=== PATIENT | male | born 1945 | race Caucasian/White ===

== ENCOUNTER 2018-10-14 14:09 | Emergency (ER) | payer MEDICARE, BC ==
[~2018-10-14] VITALS: Ht 182.9 cm; Wt 157.0 kg
[2018-10-14 14:54] LABS: BASOPHILS % (AUTO) 0.3 % (0-1); EOSINOPHILS # (AUTO) 0.5 X10'3 (0-0.9); EOSINOPHILS % (AUTO) 5.3 % (0-6); HEMATOCRIT 46.8 % (42.0-52.0); HEMOGLOBIN 14.5 g/dl (14.0-17.9); LYMPHOCYTES # (AUTO) 0.6 X10'3 (1.1-4.8); LYMPHOCYTES % (AUTO) 6.9 % (21-51); MEAN CORPUSCULAR HEMOGLOBIN 25.2 PG (27.0-31.0); MEAN CORPUSCULAR HGB CONC 30.9 % (33.0-36.5); MEAN CORPUSCULAR VOLUME 81.7 FL (78-98); MEAN PLATELET VOLUME 8.4 FL (7.4-10.4); MONOCYTES # (AUTO) 0.8 X10'3 (0-0.9); MONOCYTES % (AUTO) 8.9 % (2-12); NEUTROPHILS # (AUTO) 6.9 X10'3 (1.8-7.7); NEUTROPHILS % (AUTO) 78.6 % (42-75); PLATELET COUNT 200 X10'3 (140-440); RED BLOOD COUNT 5.74 X10'6 (4.70-6.10); RED CELL DISTRIBUTION WIDTH 17.6 % (11.5-14.5); WHITE BLOOD COUNT 8.7 X10'3 (4.5-11.0)
[2018-10-14 15:10] LABS: ALANINE AMINOTRANSFERASE 27 U/L (12-78); ALBUMIN 3.5 G/DL (3.4-5.0); ALKALINE PHOSPHATASE 60 IU/L (46-116); ANION GAP 4 (8-16); ASPARTATE AMINO TRANSFERASE 16 U/L (10-37); BILIRUBIN,TOTAL 0.4 MG/DL (0.1-1.0); BLOOD UREA NITROGEN 31 MG/DL (7-18); BUN/CREATININE RATIO 17.1 (5.4-32.0); CALCIUM 9.2 MG/DL (8.5-10.1); CHLORIDE 101 MMOL/L (99-107); CREATININE 1.81 MG/DL (0.60-1.10); GLUCOSE 123 MG/DL (70-104); LIPASE 185 U/L (73-393); POTASSIUM 4.1 MMOL/L (3.5-5.1); SODIUM 139 MMOL/L (135-145); TOTAL CARBON DIOXIDE 33.9 MMOL/L (24-32); TOTAL PROTEIN 7.1 G/DL (6.4-8.2); eGFR 37 ML/MIN
[2018-10-14 15:48] LABS: CLARITY,URINE SLIGHTLY CLOUDY (Clear); COLOR,URINE STRAW (Yellow); GLUCOSE, URINE NEGATIVE (Neg); KETONES,URINE NEGATIVE (Neg); LEUKOCYTE ESTERASE ,URINE SMALL (Neg); NITRITES, URINE NEGATIVE (Neg); OCCULT BLOOD,URINE TRACE-INTACT (Neg); PH,URINE 6.5 (4.8-8.0); PROTEIN,URINE NEGATIVE (Neg); UA COLLECTION TYPE CLN CATCH MIDSTREAM; UROBILINOGEN,URINE 0.2 E.U/dL (0.2-1.0)
[2018-10-14 15:55] LABS: BACTERIA,URINE 1+ /HPF (Neg); RBC,URINE 0-2 /HPF (0-2); SQUAMOUS EPITHELIAL CELL,UR FEW /LPF (FEW); WBC CLUMPS,URINE FEW /HPF (NEGATIVE)
[2018-10-14] MEDS ORDERED: LEVO500T2 PO (16:29)
[2018-10-14 16:45] VITALS: BP 154/108
== END 2018-10-14 16:46 | disposition home or self-care (01) ==
LOC: ER 14:11
DX: N39.0 Urinary tract infection, site not specified (principal); N28.9 Disorder of kidney and ureter, unspecified; R60.0 Localized edema; I48.91 Unspecified atrial fibrillation; I11.0 Hypertensive heart disease with heart failure; I50.9 Heart failure, unspecified; E78.00 Pure hypercholesterolemia, unspecified; J44.9 Chronic obstructive pulmonary disease, unspecified; Z87.891 Personal history of nicotine dependence; Z56.0 Unemployment, unspecified; Z88.8 Allergy status to other drugs, medicaments and biological substances; Z79.899 Other long term (current) drug therapy
CPT/HCPCS: 36415; 71045; 80053; 81001; 83690; 84484; 85025; 87077; 87088; 87186; 93005; 99284

== ENCOUNTER 2018-10-31 14:21 | Emergency (ER) | payer MEDICARE, BC ==
[~2018-10-31] VITALS: Ht 182.9 cm; Wt 150.0 kg
[2018-10-31 14:40] VITALS: BP 143/91
[2018-10-31 15:23] LABS: BASOPHILS # (AUTO) 0.1 X10'3 (0-0.2); BASOPHILS % (AUTO) 0.6 % (0-1); EOSINOPHILS # (AUTO) 0.4 X10'3 (0-0.9); EOSINOPHILS % (AUTO) 4.6 % (0-6); HEMATOCRIT 48.8 % (42.0-52.0); HEMOGLOBIN 15.2 g/dl (14.0-17.9); LYMPHOCYTES # (AUTO) 0.7 X10'3 (1.1-4.8); LYMPHOCYTES % (AUTO) 7.9 % (21-51); MEAN CORPUSCULAR HEMOGLOBIN 25.4 PG (27.0-31.0); MEAN CORPUSCULAR HGB CONC 31.2 % (33.0-36.5); MEAN CORPUSCULAR VOLUME 81.3 FL (78-98); MEAN PLATELET VOLUME 8.6 FL (7.4-10.4); MONOCYTES % (AUTO) 10.2 % (2-12); NEUTROPHILS # (AUTO) 7.2 X10'3 (1.8-7.7); NEUTROPHILS % (AUTO) 76.7 % (42-75); PLATELET COUNT 221 X10'3 (140-440); RED CELL DISTRIBUTION WIDTH 16.8 % (11.5-14.5); WHITE BLOOD COUNT 9.4 X10'3 (4.5-11.0)
[2018-10-31 15:25] LABS: ALANINE AMINOTRANSFERASE 28 U/L (12-78); ALBUMIN 3.6 G/DL (3.4-5.0); ALBUMIN/GLOBULIN RATIO 0.9 (1.1-1.5); ALKALINE PHOSPHATASE 85 IU/L (46-116); ANION GAP 9 (8-16); ASPARTATE AMINO TRANSFERASE 18 U/L (10-37); BILIRUBIN,TOTAL 0.5 MG/DL (0.1-1.0); BLOOD UREA NITROGEN 33 MG/DL (7-18); BUN/CREATININE RATIO 19.5 (5.4-32.0); CALCIUM 9.6 MG/DL (8.5-10.1); CHLORIDE 96 MMOL/L (99-107); CREATININE 1.69 MG/DL (0.60-1.10); GLUCOSE 139 MG/DL (70-104); POTASSIUM 3.1 MMOL/L (3.5-5.1); SODIUM 139 MMOL/L (135-145); TOTAL CARBON DIOXIDE 33.7 MMOL/L (24-32); TOTAL PROTEIN 7.6 G/DL (6.4-8.2); eGFR 40 ML/MIN
[2018-10-31 15:32] LABS: INR 1.1 INR; PARTIAL THROMBOPLASTIN TIME 31 SECONDS (22-32); PROTHROMBIN TIME 10.9 SECONDS (9.0-12.0)
== END 2018-10-31 16:36 | disposition home or self-care (01) ==
LOC: ER 14:21
DX: M79.602 Pain in left arm (principal); E66.01 Morbid (severe) obesity due to excess calories; I48.91 Unspecified atrial fibrillation; I11.0 Hypertensive heart disease with heart failure; I50.9 Heart failure, unspecified; E78.00 Pure hypercholesterolemia, unspecified; J44.9 Chronic obstructive pulmonary disease, unspecified; Z87.891 Personal history of nicotine dependence; Z56.0 Unemployment, unspecified; Z88.8 Allergy status to other drugs, medicaments and biological substances; Z79.899 Other long term (current) drug therapy
CPT/HCPCS: 36415; 71045; 80053; 84484; 85025; 85610; 85730; 93005; 99284

== ENCOUNTER 2020-06-03 15:56 | Inpatient (IN) | payer MEDICARE, BC ==
[~2020-06-03] VITALS: Ht 182.9 cm; Wt 160.0 kg
[2020-06-03] MEDS ORDERED: METH500T6 PO (16:26)
[2020-06-03] MEDS ORDERED: POTA20TA19 PO (16:26)
[2020-06-03] MEDS ORDERED: NYST60PO2 TOP (16:26)
[2020-06-03] MEDS ORDERED: ACET-2971 PO (16:26)
[2020-06-03] MEDS ORDERED: POTA-82 PO (16:26)
[2020-06-03] MEDS ORDERED: ESOM40CA54 PO (16:26)
[2020-06-03] MEDS ORDERED: NITR0.4T48 SL (16:26)
[2020-06-03] MEDS ORDERED: CYAN250010 PO (16:26)
[2020-06-03] MEDS ORDERED: METO5TAB7 PO (16:26)
[2020-06-03] MEDS ORDERED: ROSU40TA22 PO (16:26)
[2020-06-03] MEDS ORDERED: FURO40TA4 PO (16:26)
[2020-06-03] MEDS ORDERED: DIPH25CA52 PO (16:26)
[2020-06-03] MEDS ORDERED: POLY119P2 PO (16:26)
[2020-06-03] MEDS ORDERED: FLUT1BLS3 PO (16:26)
[2020-06-03] MEDS ORDERED: RIVA20TA PO (16:26)
[2020-06-03] MEDS ORDERED: ALBU18HF2 INH (16:26)
[2020-06-03] MEDS ORDERED: DOCU-267 PO (16:26)
[2020-06-03] MEDS ORDERED: MELA5TAB14 PO (16:26)
[2020-06-03] MEDS ORDERED: IRON150C8 PO (16:26)
[2020-06-03] MEDS ORDERED: METO-411 PO (16:26)
[2020-06-03] MEDS ORDERED: ALPR0.5T9 PO (16:26)
[2020-06-03 16:27] LABS: BASOPHILS # (AUTO) 0.1 X10'3 (0-0.2); BASOPHILS % (AUTO) 0.8 % (0-1); EOSINOPHILS % (AUTO) 0.4 % (0-6); HEMATOCRIT 42.4 % (42.0-52.0); HEMOGLOBIN 13.4 g/dl (14.0-17.9); LYMPHOCYTES # (AUTO) 0.3 X10'3 (1.1-4.8); LYMPHOCYTES % (AUTO) 3.7 % (21-51); MEAN CORPUSCULAR HEMOGLOBIN 26.9 PG (27.0-31.0); MEAN CORPUSCULAR HGB CONC 31.6 g/dL (33.0-36.5); MEAN CORPUSCULAR VOLUME 85.1 FL (78-98); MONOCYTES # (AUTO) 0.5 X10'3 (0-0.9); MONOCYTES % (AUTO) 7.2 % (2-12); NEUTROPHILS # (AUTO) 6.6 X10'3 (1.8-7.7); NEUTROPHILS % (AUTO) 87.9 % (42-75); PLATELET COUNT 153 X10'3 (140-440); RED BLOOD COUNT 4.98 X10'6 (4.70-6.10); RED CELL DISTRIBUTION WIDTH 17.2 % (11.5-14.5); WHITE BLOOD COUNT 7.5 X10'3 (4.5-11.0)
[2020-06-03] MEDS ORDERED: furosemide 10 MG/1 ML 10ml inj IV ONE (16:40)
[2020-06-03 16:54] LABS: ALANINE AMINOTRANSFERASE 19 U/L (12-78); ALBUMIN 3.2 G/DL (3.4-5.0); ALBUMIN/GLOBULIN RATIO 0.7 (1.1-1.5); ALKALINE PHOSPHATASE 89 IU/L (46-116); ANION GAP 6 (8-16); ASPARTATE AMINO TRANSFERASE 10 U/L (10-37); BILIRUBIN,TOTAL 0.7 MG/DL (0.1-1.0); BLOOD UREA NITROGEN 40 MG/DL (7-18); BUN/CREATININE RATIO 20.9 (5.4-32.0); CALCIUM 9.6 MG/DL (8.5-10.1); CHLORIDE 89 MMOL/L (99-107); CREATININE 1.91 MG/DL (0.60-1.10); GLUCOSE 145 MG/DL (70-104); SODIUM 129 MMOL/L (135-145); TOTAL CARBON DIOXIDE 33.7 MMOL/L (24-32); TOTAL PROTEIN 7.6 G/DL (6.4-8.2); eGFR 35 ML/MIN
[2020-06-03 17:05] LABS: POTASSIUM 2.7 MMOL/L (3.5-5.1)
[2020-06-03] MEDS ORDERED: potassium chloride 10mEq ER tablet PO STA (17:05)
[2020-06-03] MEDS ORDERED: potassium Cl 20 mEq SR tablet PO STA (17:08)
[2020-06-03] MEDS ORDERED: ondansetron/PF 4mg/2ml inj IV PRN (18:50)
[2020-06-03] MEDS ORDERED: ipratropium/albuterol 3ml nebule NEB PRN ×2 (18:50)
[2020-06-03] MEDS ORDERED: HYDROcodone/acetaminophen 5mg/325mg tablet PO PRN (18:50)
[2020-06-03] MEDS ORDERED: magnesium Cl slow-release 64mg tablet PO PRN (18:50)
[2020-06-03] MEDS ORDERED: magnesium 2GM in 50ml NS 50 ML IV PRN (18:50)
[2020-06-03] MEDS ORDERED: potassium CL 10mEq/100ml bag 100 ML IV PRN ×2 (18:50)
[2020-06-03] MEDS ORDERED: morphine 2 MG/ML inj. syringe IV PRN (18:50)
[2020-06-03] MEDS ORDERED: magnesium 4gm in 100ml NS 100 ML IV PRN (18:50)
[2020-06-03] MEDS ORDERED: acetaminophen 325mg tablet PO PRN (18:50)
[2020-06-03] MEDS ORDERED: ALPRAZolam 0.5mg tablet PO PRN (19:00)
[2020-06-03] MEDS ORDERED: LIDOcaine 2% 10ml TOPICAL JELLY (Urojet) TP ONE (19:00)
[2020-06-03] MEDS ORDERED: albuterol 2.5 MG/3 ML nebule NEB PRN (19:10)
[2020-06-03 20:00] VITALS: BP 134/84
--- NOTE | 2020-06-03 20:34 | NUR ---
unable to get temp on pt. he stated the ER was not able to either. He feels cool. He stated his normal temp is low, usually 96.4. Will continue to try to get oral or axillary temp, He is currently refusing rectal, but may be agreeable later if still unable to get temp.
[2020-06-03] MEDS ORDERED: acetaminophen 325mg tablet PO SCH (21:00)
[2020-06-03] MEDS: metoprolol succinate 25mg (24-HOUR) SR. Tablet PO SCH (21:38)
[2020-06-03] MEDS: pantoprazole 40mg Tablet.DR PO SCH (21:38)
[2020-06-03] MEDS: Melatonin 3mg tablet PO SCH (21:38)
[2020-06-03] MEDS: furosemide 10 MG/1 ML 10ml inj IV SCH (21:38)
[2020-06-03] MEDS ORDERED: rivaroxaban 20mg tablet PO ONE (22:10)
[2020-06-03] MEDS: K and/or MAG REPLACEMENT MC SCH (22:19)
[2020-06-03] MEDS: potassium Cl 20 mEq SR tablet PO PRN (22:23)
[2020-06-03 23:07] VITALS: BP 108/70
[2020-06-03] MEDS: cyclobenzaprine 10mg tablet PO PRN (23:35)
--- NOTE | 2020-06-04 00:53 | NUR ---
pt sleeping, HR dropping into 30s. notified. No new orders
[2020-06-04 03:00] VITALS: BP 94/59
--- NOTE | 2020-06-04 03:22 | NUR ---
curtis bag changed due to hole in bag, and it leaking on floor.
[2020-06-04 06:00] VITALS: BP 98/68
--- NOTE | 2020-06-04 06:05 | NUR ---
Patient in room PCU 3013. I have received report from Marysol METCALF and had the opportunity to ask questions and assume patient care.
[2020-06-04 06:34] LABS: BASOPHILS % (AUTO) 0.4 % (0-1); EOSINOPHILS # (AUTO) 0.1 X10'3 (0-0.9); EOSINOPHILS % (AUTO) 0.6 % (0-6); HEMATOCRIT 42.2 % (42.0-52.0); HEMOGLOBIN 13.2 g/dl (14.0-17.9); LYMPHOCYTES # (AUTO) 0.3 X10'3 (1.1-4.8); LYMPHOCYTES % (AUTO) 3.5 % (21-51); MEAN CORPUSCULAR HEMOGLOBIN 26.9 PG (27.0-31.0); MEAN CORPUSCULAR HGB CONC 31.4 g/dL (33.0-36.5); MEAN CORPUSCULAR VOLUME 85.9 FL (78-98); MEAN PLATELET VOLUME 8.2 FL (7.4-10.4); MONOCYTES % (AUTO) 11.3 % (2-12); NEUTROPHILS # (AUTO) 7.6 X10'3 (1.8-7.7); NEUTROPHILS % (AUTO) 84.2 % (42-75); PLATELET COUNT 150 X10'3 (140-440); RED BLOOD COUNT 4.92 X10'6 (4.70-6.10); RED CELL DISTRIBUTION WIDTH 17.1 % (11.5-14.5)
[2020-06-04 06:47] LABS: ALBUMIN 3.2 G/DL (3.4-5.0); ANION GAP 1 (8-16); BLOOD UREA NITROGEN 42 MG/DL (7-18); BUN/CREATININE RATIO 20.8 (5.4-32.0); CALCIUM 9.4 MG/DL (8.5-10.1); CHLORIDE 93 MMOL/L (99-107); CREATININE 2.02 MG/DL (0.60-1.10); GLUCOSE 95 MG/DL (70-104); MAGNESIUM 2.2 MG/DL (1.5-2.4); SODIUM 135 MMOL/L (135-145); eGFR 32 ML/MIN
[2020-06-04 06:59] LABS: POTASSIUM 2.5 MMOL/L (3.5-5.1); TOTAL CARBON DIOXIDE 41.3 MMOL/L (24-32)
--- NOTE | 2020-06-04 07:05 | NUR ---
PAGER ID: [phone] MESSAGE: Re: Jones Ding. Room: 3013B. Critical Potassium: 2.5 and Co2 of 41.3. Will replace Potassium per protocol. -[facility] #[id number] Dr. Reddy paged concerning critical labs.
[2020-06-04] MEDS: potassium Cl 20 mEq SR tablet PO PRN ×4 (07:41→22:44)
[2020-06-04] MEDS: atorvastatin 20mg tablet PO SCH (07:41)
[2020-06-04] MEDS: pantoprazole 40mg Tablet.DR PO SCH ×2 (07:42→20:23)
[2020-06-04] MEDS: docusate sod 100mg capsule PO SCH (07:42)
[2020-06-04] MEDS: furosemide 10 MG/1 ML 10ml inj IV SCH (07:43)
[2020-06-04] MEDS: metoprolol succinate 25mg (24-HOUR) SR. Tablet PO SCH ×2 (08:00→20:00)
[2020-06-04] MEDS ORDERED: levoFLOXACIN-Levaquin 750MG/D5 150 ML IV SCH (08:00)
[2020-06-04] MEDS: K and/or MAG REPLACEMENT MC SCH ×2 (08:00→18:46)
[2020-06-04 11:00] VITALS: BP 105/63
--- NOTE | 2020-06-04 13:13 | NUR ---
DM Consult: A1C 7.0. Written DM ed w/ RD contact information placed in chart. Addendum: 06/04/20 at [address] Amended: Links added.
[2020-06-04 15:00] VITALS: BP 101/62
[2020-06-04] MEDS ORDERED: glucagon, human recombinant 1mg kit SUBCUT PRN (15:20)
[2020-06-04] MEDS ORDERED: insulin Lispro (HumaLOG) vial - multi-dose SQ SCH (15:20)
[2020-06-04] MEDS ORDERED: dextrose 50%-water 50ml dispensing syringe IV PRN ×2 (15:20)
[2020-06-04] MEDS ORDERED: MESSAGE TO PHARMACY PO ONE (15:20)
[2020-06-04] MEDS ORDERED: dextrose ORAL solution 15 GM/59 ML bottle PO PRN ×2 (15:20)
[2020-06-04 16:46] LABS: ABG BASE EXCESS 11.4 mmol/L (-2.0-2.0); ABG PCO2 (T) 71.4 mmHg (35.0-48.0); ABG PO2 (T) 82.2 mmHg (75.0-100.0); ALLEN'S TEST POSITIVE; FCOHb 1.5 % (0.0-3.9); FLOW 3 L/min; FO2Hb 94.6 % (94-97); TOTAL HEMOGLOBIN 14.2 G/dl (14.0-18.0)
[2020-06-04] MEDS: acetaminophen 325mg tablet PO SCH ×2 (17:58→20:23)
[2020-06-04] MEDS: rivaroxaban 20mg tablet PO SCH (17:58)
[2020-06-04 18:00] VITALS: BP 119/67
--- NOTE | 2020-06-04 18:16 | NUR ---
Problems reprioritized. Patient report given, questions answered & plan of care reviewed with Prosper RN.
--- NOTE | 2020-06-04 18:48 | NUR ---
Patient in room PCU 3013. I have received report from Catalino METCALF and had the opportunity to ask questions and assume patient care.
[2020-06-04] MEDS: Melatonin 3mg tablet PO SCH (20:22)
[2020-06-04] MEDS: lactobacillus rhamnosus 10,000 MMU CELLS/CAPSULE PO SCH (20:23)
[2020-06-04] MEDS: furosemide 40mg/4ml inj IV SCH (20:24)
[2020-06-04] MEDS: mineral oil/petrolatum, white cream 113gm jar TP SCH (20:35)
[2020-06-04] MEDS: insulin glargine (Lantus) pen - multi-dose SQ SCH (21:00)
[2020-06-04 22:00] VITALS: BP 114/43
--- NOTE | 2020-06-04 22:34 | NUR ---
PAGER ID: [phone] MESSAGE: Jones Ding. RM [id number]. Dx SOB, CHF exacerbation, on Lasix. Patient's potassium is 2.8 up from 2.5 this morning. Do you want me to replace again per protocol? Also could I get an order for Nystatin powder?, Pt is obese. Prosper METCALF EXT [id number]
[2020-06-05 02:00] VITALS: BP 128/73
[2020-06-05] MEDS: potassium Cl 20 mEq SR tablet PO PRN ×4 (03:28→22:55)
[2020-06-05 06:00] VITALS: BP 111/75
--- NOTE | 2020-06-05 06:00 | NUR ---
Patient in room PCU 3013. I have received report from NINO METCALF and had the opportunity to ask questions and assume patient care.
[2020-06-05 06:06] LABS: BASOPHILS % (AUTO) 0.5 % (0-1); EOSINOPHILS % (AUTO) 0.4 % (0-6); HEMATOCRIT 42.9 % (42.0-52.0); HEMOGLOBIN 13.5 g/dl (14.0-17.9); LYMPHOCYTES # (AUTO) 0.2 X10'3 (1.1-4.8); LYMPHOCYTES % (AUTO) 2.7 % (21-51); MEAN CORPUSCULAR HEMOGLOBIN 27.3 PG (27.0-31.0); MEAN CORPUSCULAR HGB CONC 31.5 g/dL (33.0-36.5); MEAN CORPUSCULAR VOLUME 86.6 FL (78-98); MEAN PLATELET VOLUME 8.1 FL (7.4-10.4); MONOCYTES # (AUTO) 0.8 X10'3 (0-0.9); MONOCYTES % (AUTO) 9.3 % (2-12); NEUTROPHILS # (AUTO) 7.9 X10'3 (1.8-7.7); NEUTROPHILS % (AUTO) 87.1 % (42-75); PLATELET COUNT 136 X10'3 (140-440); RED BLOOD COUNT 4.96 X10'6 (4.70-6.10); RED CELL DISTRIBUTION WIDTH 17.3 % (11.5-14.5); WHITE BLOOD COUNT 9.1 X10'3 (4.5-11.0)
[2020-06-05 06:38] LABS: ALBUMIN 3.1 G/DL (3.4-5.0); ANION GAP 5 (8-16); BLOOD UREA NITROGEN 41 MG/DL (7-18); BUN/CREATININE RATIO 23.7 (5.4-32.0); CALCIUM 9.5 MG/DL (8.5-10.1); CHLORIDE 88 MMOL/L (99-107); CREATININE 1.73 MG/DL (0.60-1.10); GLUCOSE 99 MG/DL (70-104); MAGNESIUM 1.9 MG/DL (1.5-2.4); SODIUM 132 MMOL/L (135-145); TOTAL CARBON DIOXIDE 39.4 MMOL/L (24-32); eGFR 39 ML/MIN
[2020-06-05 06:41] LABS: POTASSIUM 2.8 MMOL/L (3.5-5.1)
--- NOTE | 2020-06-05 06:44 | NUR ---
Problems reprioritized. Patient report given, questions answered & plan of care reviewed with Shamar METCALF. Patient is stable and resting comfortably at this time.
[2020-06-05] MEDS: docusate sod 100mg capsule PO SCH (07:33)
[2020-06-05] MEDS: furosemide 40mg/4ml inj IV SCH ×2 (07:33→20:34)
[2020-06-05] MEDS: K and/or MAG REPLACEMENT MC SCH ×2 (07:33→20:00)
[2020-06-05] MEDS: lactobacillus rhamnosus 10,000 MMU CELLS/CAPSULE PO SCH ×2 (07:33→20:34)
[2020-06-05] MEDS: mineral oil/petrolatum, white cream 113gm jar TP SCH ×2 (07:34→20:36)
[2020-06-05] MEDS: nystatin 15 GM powder TP SCH ×3 (07:34→20:36)
[2020-06-05] MEDS: acetaminophen 325mg tablet PO SCH ×3 (07:34→20:34)
[2020-06-05] MEDS: atorvastatin 20mg tablet PO SCH (07:34)
[2020-06-05] MEDS: pantoprazole 40mg Tablet.DR PO SCH ×2 (07:34→20:34)
[2020-06-05] MEDS: metoprolol succinate 25mg (24-HOUR) SR. Tablet PO SCH ×2 (07:36→15:53)
[2020-06-05 11:00] VITALS: BP 134/61
[2020-06-05 12:10] LABS: ABG BASE EXCESS 12.6 mmol/L (-2.0-2.0); ABG HCO3 40.6 mmol/L (22.0-26.0); ABG OXYGEN SATURATION 96.6 % (94-97); ABG PCO2 (T) 67.8 mmHg (35.0-48.0); ALLEN'S TEST POSITIVE; FCOHb 1.6 % (0.0-3.9); FLOW 3 L/min; FMetHb 0.3 % (0.0-1.5); FO2Hb 94.8 % (94-97); TOTAL HEMOGLOBIN 14.1 G/dl (14.0-18.0)
[2020-06-05 15:00] VITALS: BP 119/70
[2020-06-05] MEDS: cyclobenzaprine 10mg tablet PO PRN (16:13)
[2020-06-05] MEDS: rivaroxaban 20mg tablet PO SCH (17:24)
[2020-06-05 18:00] VITALS: BP 123/74
--- NOTE | 2020-06-05 18:27 | NUR ---
Problems reprioritized. Patient report given, questions answered & plan of care reviewed with FAYE RN.
--- NOTE | 2020-06-05 18:30 | NUR ---
Patient in room PCU 3013. I have received report from Thais METCALF and had the opportunity to ask questions and assume patient care.
[2020-06-05] MEDS: Melatonin 3mg tablet PO SCH (20:35)
[2020-06-05] MEDS: insulin glargine (Lantus) pen - multi-dose SQ SCH (21:00)
[2020-06-05 22:00] VITALS: BP 114/63
[2020-06-06 02:00] VITALS: BP 110/66
[2020-06-06 05:32] LABS: BASOPHILS % (AUTO) 0.7 % (0-1); EOSINOPHILS # (AUTO) 0.1 X10'3 (0-0.9); EOSINOPHILS % (AUTO) 1.3 % (0-6); HEMATOCRIT 42.6 % (42.0-52.0); HEMOGLOBIN 13.3 g/dl (14.0-17.9); LYMPHOCYTES # (AUTO) 0.3 X10'3 (1.1-4.8); LYMPHOCYTES % (AUTO) 4.7 % (21-51); MEAN CORPUSCULAR HEMOGLOBIN 26.9 PG (27.0-31.0); MEAN CORPUSCULAR HGB CONC 31.3 g/dL (33.0-36.5); MEAN PLATELET VOLUME 8.2 FL (7.4-10.4); MONOCYTES # (AUTO) 0.9 X10'3 (0-0.9); MONOCYTES % (AUTO) 12.4 % (2-12); NEUTROPHILS # (AUTO) 5.7 X10'3 (1.8-7.7); NEUTROPHILS % (AUTO) 80.9 % (42-75); PLATELET COUNT 147 X10'3 (140-440); RED BLOOD COUNT 4.95 X10'6 (4.70-6.10); RED CELL DISTRIBUTION WIDTH 17.3 % (11.5-14.5); WHITE BLOOD COUNT 7.1 X10'3 (4.5-11.0)
[2020-06-06 05:43] LABS: ANION GAP 0 (8-16); BLOOD UREA NITROGEN 38 MG/DL (7-18); BUN/CREATININE RATIO 21.1 (5.4-32.0); CALCIUM 9.4 MG/DL (8.5-10.1); CHLORIDE 90 MMOL/L (99-107); GLUCOSE 98 MG/DL (70-104); MAGNESIUM 1.8 MG/DL (1.5-2.4); SODIUM 133 MMOL/L (135-145); eGFR 37 ML/MIN
--- NOTE | 2020-06-06 06:00 | NUR ---
Patient in room PCU 3013. I have received report from Victoriano RN and had the opportunity to ask questions and assume patient care.
[2020-06-06 06:12] LABS: POTASSIUM 3.2 MMOL/L (3.5-5.1)
--- NOTE | 2020-06-06 06:19 | NUR ---
Problems reprioritized. Patient report given, questions answered & plan of care reviewed with Thais METCALF.
[2020-06-06 06:25] LABS: TOTAL CARBON DIOXIDE 42.9 MMOL/L (24-32)
[2020-06-06 06:57] VITALS: BP 123/75
[2020-06-06] MEDS ORDERED: levoFLOXACIN-Levaquin 750MG/D5 150 ML IV SCH (08:00)
[2020-06-06] MEDS: K and/or MAG REPLACEMENT MC SCH ×2 (08:00→20:00)
[2020-06-06] MEDS: metoprolol succinate 25mg (24-HOUR) SR. Tablet PO SCH (08:03)
[2020-06-06] MEDS: lactobacillus rhamnosus 10,000 MMU CELLS/CAPSULE PO SCH ×2 (08:04→20:00)
[2020-06-06] MEDS: atorvastatin 20mg tablet PO SCH (08:04)
[2020-06-06] MEDS: docusate sod 100mg capsule PO SCH (08:04)
[2020-06-06] MEDS: pantoprazole 40mg Tablet.DR PO SCH ×2 (08:04→20:00)
[2020-06-06] MEDS: acetaminophen 325mg tablet PO SCH ×3 (08:04→21:00)
[2020-06-06] MEDS: furosemide 40mg/4ml inj IV SCH ×2 (08:05→20:00)
[2020-06-06] MEDS: potassium Cl 20 mEq SR tablet PO PRN ×2 (08:26→14:53)
[2020-06-06] MEDS: mineral oil/petrolatum, white cream 113gm jar TP SCH ×2 (08:55→20:00)
[2020-06-06] MEDS: nystatin 15 GM powder TP SCH ×3 (08:55→21:00)
--- NOTE | 2020-06-06 09:27 | NUR ---
c/o pain in bilateral hands and R wrist d/t joints feeling like they are "locking". States he has to use L hand for most things because pain is more tolerable. Says flexeril does not work. Will report to doctor.
[2020-06-06 11:00] VITALS: BP 100/67
--- NOTE | 2020-06-06 12:31 | NUR ---
PAGER ID: [phone] MESSAGE: [id number] Shahana Ding. Pt is at baseline. Per Mellissa, pt does not qualify for rehab; states pt. can go home with home health if you want to continue discharge. Thais 7068
--- NOTE | 2020-06-06 14:01 | NUR ---
PAGER ID: [phone] MESSAGE: [id number] Stick, R. c/o joint pain in wrists and fingers. States "my finger joints feel like they lock" Observed tremors in bilateral hands. Flexeril ineffective. Pain unalleviated by morphine. Thais 5622
[2020-06-06] MEDS ORDERED: HYDROcodone/acetaminophen 10/325mg tab PO ONE (14:15)
--- NOTE | 2020-06-06 14:15 | NUR ---
Problems reprioritized. Patient report given, questions answered & plan of care reviewed with Faustina METCALF.
[2020-06-06 15:00] VITALS: BP 122/71
[2020-06-06] MEDS: rivaroxaban 20mg tablet PO SCH (17:33)
--- NOTE | 2020-06-06 18:13 | NUR ---
Problems reprioritized. Patient report given, questions answered & plan of care reviewed with Victoriano RN.
--- NOTE | 2020-06-06 18:30 | NUR ---
Patient in room PCU 3013. I have received report from Faustina METCALF and had the opportunity to ask questions and assume patient care.
[2020-06-06 19:00] VITALS: BP 115/81
[2020-06-06] MEDS: Melatonin 3mg tablet PO SCH (21:00)
[2020-06-06] MEDS: insulin glargine (Lantus) pen - multi-dose SQ SCH (21:00)
[2020-06-06 23:00] VITALS: BP 148/67
[2020-06-06] MEDS ORDERED: potassium CL 10mEq/100ml bag 100 ML IV PRN (23:50)
[2020-06-06] MEDS ORDERED: magnesium Cl slow-release 64mg tablet PO PRN (23:50)
[2020-06-06] MEDS ORDERED: magnesium 4gm in 100ml NS 100 ML IV PRN (23:50)
[2020-06-07] MEDS: potassium Cl 20 mEq SR tablet PO PRN ×3 (00:28→16:53)
[2020-06-07 03:00] VITALS: BP 136/71
[2020-06-07 06:00] VITALS: BP 116/65
--- NOTE | 2020-06-07 06:21 | NUR ---
Problems reprioritized. Patient report given, questions answered & plan of care reviewed with Thais METCALF.
[2020-06-07 06:30] LABS: BASOPHILS % (AUTO) 0.5 % (0-1); EOSINOPHILS # (AUTO) 0.1 X10'3 (0-0.9); EOSINOPHILS % (AUTO) 1.3 % (0-6); HEMATOCRIT 43.5 % (42.0-52.0); HEMOGLOBIN 13.6 g/dl (14.0-17.9); LYMPHOCYTES # (AUTO) 0.3 X10'3 (1.1-4.8); MEAN CORPUSCULAR HEMOGLOBIN 27.1 PG (27.0-31.0); MEAN CORPUSCULAR HGB CONC 31.2 g/dL (33.0-36.5); MEAN CORPUSCULAR VOLUME 86.8 FL (78-98); MONOCYTES # (AUTO) 0.9 X10'3 (0-0.9); MONOCYTES % (AUTO) 10.1 % (2-12); NEUTROPHILS # (AUTO) 7.2 X10'3 (1.8-7.7); NEUTROPHILS % (AUTO) 84.1 % (42-75); PLATELET COUNT 143 X10'3 (140-440); RED BLOOD COUNT 5.01 X10'6 (4.70-6.10); RED CELL DISTRIBUTION WIDTH 17.1 % (11.5-14.5); WHITE BLOOD COUNT 8.5 X10'3 (4.5-11.0)
[2020-06-07 06:39] LABS: BLOOD UREA NITROGEN 37 MG/DL (7-18); BUN/CREATININE RATIO 23.3 (5.4-32.0); CALCIUM 9.2 MG/DL (8.5-10.1); CHLORIDE 88 MMOL/L (99-107); CREATININE 1.59 MG/DL (0.60-1.10); GLUCOSE 95 MG/DL (70-104); MAGNESIUM 1.6 MG/DL (1.5-2.4); SODIUM 131 MMOL/L (135-145); eGFR 43 ML/MIN
[2020-06-07 06:55] LABS: ANION GAP -4 (8-16)
[2020-06-07 06:57] LABS: POTASSIUM 2.9 MMOL/L (3.5-5.1); TOTAL CARBON DIOXIDE 46.5 MMOL/L (24-32)
--- NOTE | 2020-06-07 07:13 | NUR ---
PAGER ID: [phone] MESSAGE: [id number] Tamanna Ding K has been replaced since 06/03 with no improvement of K labs. On lasix IV 20mg BID. Occasional ectopies on tele. May I have a scheduled order for K on top of the replacement protocol please? Thais 4786
--- NOTE | 2020-06-07 07:31 | NUR ---
Received orders for additional KDUR 40mEq once with 1st KDUR 40mEq per protocol. Recheck K level at noon. If still below 3.0, another additional KDUR 40mEq once with 2nd KDUR 40mEq per protocol.
[2020-06-07] MEDS ORDERED: potassium Cl 20 mEq SR tablet PO STA (07:35)
[2020-06-07] MEDS: mineral oil/petrolatum, white cream 113gm jar TP SCH ×2 (08:00→20:54)
[2020-06-07] MEDS: nystatin 15 GM powder TP SCH ×3 (08:00→20:54)
[2020-06-07] MEDS: K and/or MAG REPLACEMENT MC SCH ×3 (08:00→20:00)
[2020-06-07] MEDS: atorvastatin 20mg tablet PO SCH (08:43)
[2020-06-07] MEDS: furosemide 40mg/4ml inj IV SCH (08:43)
[2020-06-07] MEDS: metoprolol succinate 25mg (24-HOUR) SR. Tablet PO SCH (08:43)
[2020-06-07] MEDS: lactobacillus rhamnosus 10,000 MMU CELLS/CAPSULE PO SCH ×2 (08:43→20:53)
[2020-06-07] MEDS: pantoprazole 40mg Tablet.DR PO SCH ×2 (08:44→20:53)
[2020-06-07] MEDS: acetaminophen 325mg tablet PO SCH ×3 (08:44→20:54)
[2020-06-07] MEDS: docusate sod 100mg capsule PO SCH (08:44)
[2020-06-07 11:00] VITALS: BP 129/52
--- NOTE | 2020-06-07 11:49 | NUR ---
Initial: Pt admit with SOB likely d/t combination of CHF, pneumonia and obstructive lung disease etc per MD notes. Per [facility] notes pt with BLE venous ulcers, abrasion left 2nd and 3rd toes, left anterior 3rd toe and right 2nd toe arterial ulcers, and right dorsal foot skin tear. Pt currently on a CHO controlled heart healthy diet documented with 75-100% PO intake throughout LOS meeting nutrient needs for IBW. LBM 06/05 documented as smears although receiving routine bowel care. D/w dietary to send power pudding with next meal to assist with bowel regularity. Will continue to follow and monitor need for further nutrition intervention. Recommendations: 1) Continue heart healthy CHO controlled diet 2) Monitor need for additional protein for satiety 3) Routine bowel care 4) Scaled weights per rx Addendum: 06/07/20 at [address] Amended: Links added.
[2020-06-07 12:00] LABS: ABG BASE EXCESS 17.9 mmol/L (-2.0-2.0); ABG HCO3 46.7 mmol/L (22.0-26.0); ABG OXYGEN SATURATION 94.9 % (94-97); ABG PO2 (T) 71.2 mmHg (75.0-100.0); ALLEN'S TEST POSITIVE; FCOHb 2.4 % (0.0-3.9); FLOW 3 L/min; FMetHb 0.3 % (0.0-1.5); FO2Hb 92.3 % (94-97); TOTAL HEMOGLOBIN 14.4 G/dl (14.0-18.0)
--- NOTE | 2020-06-07 12:12 | NUR ---
PAGER ID: [phone] MESSAGE: [id number] Tamanna Ding results in. pCO2 74.0. Previous study was 67.8. Just NGUYEN Plascencia [id number]
[2020-06-07 15:00] VITALS: BP 152/61
--- NOTE | 2020-06-07 15:36 | NUR ---
Problems reprioritized. Patient report given, questions answered & plan of care reviewed with Natividad METCALF.
[2020-06-07] MEDS: rivaroxaban 20mg tablet PO SCH (16:54)
[2020-06-07 18:00] VITALS: BP 123/83
[2020-06-07] MEDS: Melatonin 3mg tablet PO SCH (20:53)
[2020-06-07] MEDS: insulin glargine (Lantus) pen - multi-dose SQ SCH (21:00)
[2020-06-07 23:00] VITALS: BP 119/71
[2020-06-08 03:00] VITALS: BP 110/70
--- NOTE | 2020-06-08 05:59 | NUR ---
Patient in room PCU 3013. I have received report from Natividad METCALF and had the opportunity to ask questions and assume patient care.
[2020-06-08 06:00] VITALS: BP 127/67
--- NOTE | 2020-06-08 06:07 | NUR ---
Problems reprioritized. Patient report given, questions answered & plan of care reviewed with Natividad METCALF.
[2020-06-08 06:30] LABS: BASOPHILS # (AUTO) 0.1 X10'3 (0-0.2); BASOPHILS % (AUTO) 0.7 % (0-1); EOSINOPHILS # (AUTO) 0.1 X10'3 (0-0.9); EOSINOPHILS % (AUTO) 1.2 % (0-6); HEMATOCRIT 42.8 % (42.0-52.0); HEMOGLOBIN 13.5 g/dl (14.0-17.9); LYMPHOCYTES # (AUTO) 0.3 X10'3 (1.1-4.8); LYMPHOCYTES % (AUTO) 3.9 % (21-51); MEAN CORPUSCULAR HEMOGLOBIN 27.1 PG (27.0-31.0); MEAN CORPUSCULAR HGB CONC 31.5 g/dL (33.0-36.5); MEAN CORPUSCULAR VOLUME 85.9 FL (78-98); MEAN PLATELET VOLUME 7.8 FL (7.4-10.4); MONOCYTES # (AUTO) 0.8 X10'3 (0-0.9); MONOCYTES % (AUTO) 11.4 % (2-12); NEUTROPHILS # (AUTO) 6.1 X10'3 (1.8-7.7); NEUTROPHILS % (AUTO) 82.8 % (42-75); PLATELET COUNT 153 X10'3 (140-440); RED BLOOD COUNT 4.98 X10'6 (4.70-6.10); RED CELL DISTRIBUTION WIDTH 17.1 % (11.5-14.5); WHITE BLOOD COUNT 7.4 X10'3 (4.5-11.0)
[2020-06-08 06:49] LABS: ANION GAP 5 (8-16); BLOOD UREA NITROGEN 32 MG/DL (7-18); BUN/CREATININE RATIO 26.7 (5.4-32.0); CALCIUM 9.5 MG/DL (8.5-10.1); CHLORIDE 88 MMOL/L (99-107); GLUCOSE 101 MG/DL (70-104); MAGNESIUM 1.8 MG/DL (1.5-2.4); POTASSIUM 3.3 MMOL/L (3.5-5.1); SODIUM 132 MMOL/L (135-145); TOTAL CARBON DIOXIDE 38.6 MMOL/L (24-32); eGFR 59 ML/MIN
[2020-06-08] MEDS: K and/or MAG REPLACEMENT MC SCH ×2 (08:00→20:00)
[2020-06-08] MEDS: atorvastatin 20mg tablet PO SCH (08:56)
[2020-06-08] MEDS: pantoprazole 40mg Tablet.DR PO SCH ×2 (08:57→20:58)
[2020-06-08] MEDS: metoprolol succinate 25mg (24-HOUR) SR. Tablet PO SCH (08:57)
[2020-06-08] MEDS: acetaminophen 325mg tablet PO SCH ×3 (08:58→20:58)
[2020-06-08] MEDS: mineral oil/petrolatum, white cream 113gm jar TP SCH ×2 (08:58→20:58)
[2020-06-08] MEDS: nystatin 15 GM powder TP SCH ×3 (08:59→20:58)
[2020-06-08] MEDS: lactobacillus rhamnosus 10,000 MMU CELLS/CAPSULE PO SCH ×2 (08:59→20:57)
[2020-06-08] MEDS: docusate sod 100mg capsule PO SCH (08:59)
[2020-06-08 11:00] VITALS: BP 106/70
[2020-06-08] MEDS ORDERED: levoFLOXACIN 750MG TABLET PO SCH (11:00)
--- NOTE | 2020-06-08 14:08 | NUR ---
Full thickness skin loss on left anterior second toe is cleaned with saline and covered with nonstick pad and held in place with tegaderm dressing
[2020-06-08 15:00] VITALS: BP 101/64
[2020-06-08] MEDS: rivaroxaban 20mg tablet PO SCH (17:10)
[2020-06-08] MEDS: potassium Cl 20 mEq SR tablet PO PRN ×2 (17:18→21:15)
[2020-06-08 18:00] VITALS: BP 101/65
--- NOTE | 2020-06-08 19:03 | NUR ---
Patient in room PCU 3013. I have received report from Natividad METCALF and had the opportunity to ask questions and assume patient care.
[2020-06-08] MEDS: Melatonin 3mg tablet PO SCH (20:57)
[2020-06-08] MEDS: insulin glargine (Lantus) pen - multi-dose SQ SCH (21:00)
[2020-06-08 22:00] VITALS: BP 101/65
--- NOTE | 2020-06-08 22:14 | NUR ---
Done by day shift just prior to shift change Addendum: 06/08/20 at 2236 by Eleanor New RN Amended: Links added.
[2020-06-09 02:00] VITALS: BP 117/72
[2020-06-09 06:00] VITALS: BP 106/64
--- NOTE | 2020-06-09 06:00 | NUR ---
Patient in room PCU 3013. I have received report from Dario and had the opportunity to ask questions and assume patient care.
--- NOTE | 2020-06-09 06:05 | NUR ---
Problems reprioritized. Patient report given, questions answered & plan of care reviewed with Master METCALF.
[2020-06-09 06:17] LABS: MAGNESIUM 1.9 MG/DL (1.5-2.4); POTASSIUM 3.7 MMOL/L (3.5-5.1)
[2020-06-09] MEDS: docusate sod 100mg capsule PO SCH (08:21)
[2020-06-09] MEDS: lactobacillus rhamnosus 10,000 MMU CELLS/CAPSULE PO SCH (08:21)
[2020-06-09] MEDS: pantoprazole 40mg Tablet.DR PO SCH (08:22)
[2020-06-09] MEDS: atorvastatin 20mg tablet PO SCH (08:22)
[2020-06-09] MEDS: metoprolol succinate 25mg (24-HOUR) SR. Tablet PO SCH (08:22)
[2020-06-09] MEDS: acetaminophen 325mg tablet PO SCH (08:23)
--- NOTE | 2020-06-09 10:13 | NUR ---
PAGER ID: [phone] MESSAGE: [id number] Jones Ding admitted 06/03 Pt has 4+ edema on lower extremities ProBnp 3541 Pt takes 40 mg BID furosemide at home would you like to continue home Lasix? #[id number] Lissette
--- NOTE | 2020-06-09 10:45 | NUR ---
Report called into [facility] Michael assuming care.
--- NOTE | 2020-06-09 12:05 | NUR ---
Unable to make follow up [facility]-Heart Failure appt due patient being transfered to [facility].
--- NOTE | 2020-06-09 13:09 | NUR ---
Patient left via gurney with [facility] personnel. Danny Rodriguez called for report. Patient alert and ready to go.
--- NOTE | 2020-06-09 13:31 | NUR ---
Patient was being transferred to [facility] today. I changed his dressings today. His right foot is with an open area that is asymptomatic, partial thickness, not too much drainage. I cleaned with saline. Covered with oil immersion dressing, and an optifoam. The left foot 2nd toe is with an open wound from the scab falling off and bleeding. I cleaned with saline and applied oil immersion dressing, and conform wrap. Both feet were cool to touch and darker in color. Nursing informed of assessment and dressing change.
== END 2020-06-09 13:05 | DRG 291 ==
LOC: ER 15:57 → ED HOLD 18:48 → EDBEDREQ 19:30 → PCU 3S 19:50
PROVIDERS: ADMIT Internal Medicine; ATTEND Internal Medicine
PROC: 5A09357 Assistance with Respiratory Ventilation, Less than 24 Consecutive Hours, Continuous Positive Airway Pressure (ICD-10-PCS; principal; 2020-06-04)
DX: I11.0 Hypertensive heart disease with heart failure (principal); J96.22 Acute and chronic respiratory failure with hypercapnia; Z68.42 Body mass index [BMI] 45.0-49.9, adult; E87.1 Hypo-osmolality and hyponatremia; L97.909 Non-pressure chronic ulcer of unspecified part of unspecified lower leg with unspecified severity; J44.1 Chronic obstructive pulmonary disease with (acute) exacerbation; I50.23 Acute on chronic systolic (congestive) heart failure; I27.81 Cor pulmonale (chronic); E66.01 Morbid (severe) obesity due to excess calories; I87.8 Other specified disorders of veins; I48.91 Unspecified atrial fibrillation; E87.6 Hypokalemia; K21.9 Gastro-esophageal reflux disease without esophagitis; E78.5 Hyperlipidemia, unspecified; G47.33 Obstructive sleep apnea (adult) (pediatric); I83.009 Varicose veins of unspecified lower extremity with ulcer of unspecified site; E11.9 Type 2 diabetes mellitus without complications; Z88.8 Allergy status to other drugs, medicaments and biological substances; Z87.891 Personal history of nicotine dependence
CPT/HCPCS: 36415; 36600; 71045; 76937; 80048; 80053; 82803; 82948; 83036; 83735; 83880; 84132; 84484; 85018; 85025; 87081; 93005; 93306; 94660; 94760; 96374; 97110; 97116; 97162; 97530; 99285; G0378; J1815; J1940; J1956; J2270